=== PATIENT | male | born 1970 | race African-American/Black ===

== ENCOUNTER 2019-10-20 11:20 | Inpatient (IN) ==
[2019-10-20] MEDS ORDERED: niCARdipine 25 MG/10 ML VIAL IV ONE (11:55)
[2019-10-20] MEDS: niCARdipine INJ 25 MG in SODIUM CHLORIDE 0.9% 240 ML IV PRN ×4 (12:39→23:45)
[2019-10-20] MEDS ORDERED: ONDANSETRON 4 MG/2 ML VIAL IV PRN (12:39)
[2019-10-20] MEDS: amLODIPine 10 MG TABLET PO SCH (15:28)
[2019-10-20] MEDS: hydrALAZINE 20 MG/1 ML VIAL IV PRN ×2 (15:28→21:16)
[2019-10-20] MEDS ORDERED: ceFAZolin 1,000 MG in SYRINGE 1 EACH IV ONE (16:11)
[2019-10-20] MEDS ORDERED: FUROSEMIDE 40 MG/4 ML VIAL IV ONE (17:41)
[2019-10-20] MEDS: carvediloL 25 MG TABLET PO SCH (21:16)
[2019-10-20] MEDS: levETIRAcetam 500 MG TABLET PO SCH (21:16)
[2019-10-21] MEDS: niCARdipine INJ 25 MG in SODIUM CHLORIDE 0.9% 240 ML IV PRN ×2 (04:36→07:59)
[2019-10-21] MEDS: hydrALAZINE 20 MG/1 ML VIAL IV PRN ×2 (04:39→08:37)
[2019-10-21 05:09] LABS: Basophils % 0.5 % (0.0-0.8); Eosinophils # 0.3 10*3/uL (0.0-0.87); Eosinophils % 3.9 % (0.00-10.9); Hematocrit 28.8 VOL% (42.0-52.0); Hemoglobin 8.7 GM/DL (14.0-18.0); Immature Granulocytes % 0.3 %; Immature Granulocytes Absolute 0.02 #; Lymphocytes # 1.3 10*3/uL (1.4-4.0); Mean Corpuscular HGB Conc 30.2 GM/DL (32-36); Mean Corpuscular Volume 94.1 FL (87-102); Mean Platelet Volume 12.7 FL (9.6-12.0); Neutrophils % 72.3 % (38.7-73.9); Platelet Count 159 T/CUMM (130-400); Red Blood Count 3.06 MC/CUMM (3.8-5.5); Red Cell Distribution Width 13.2 % (9.3-17.3); White Blood Count 7.7 T/CUMM (4-12)
[2019-10-21 05:16] LABS: INR 1.1; PT Patient Result 11.8 SECS (9.8-11.9)
[2019-10-21 05:21] LABS: Calcium 7.2 MG/DL (8.5-10.1)
[2019-10-21] MEDS ORDERED: ceFAZolin 1,000 MG in SYRINGE 1 EACH IV ONE (06:00)
[2019-10-21] MEDS: carvediloL 25 MG TABLET PO SCH (07:32)
[2019-10-21] MEDS ORDERED: MAGNESIUM SULF RIDER 2 GM in PREMIX 1 EACH IV ONE (07:55)
[2019-10-21] MEDS: levETIRAcetam 500 MG TABLET PO SCH (08:00)
[2019-10-21] MEDS: amLODIPine 10 MG TABLET PO SCH (08:00)
[2019-10-21] MEDS ORDERED: LIDOCAINE 1%/EPI INJ 20 ML VIAL ONE (08:10)
[2019-10-21] MEDS ORDERED: BUPIVACAINE 0.5% 50 ML VIAL ONE (08:10)
[2019-10-21] MEDS ORDERED: PANTOPRAZOLE 40 MG TABLET PO SCH (09:00)
[2019-10-21] MEDS ORDERED: POTASSIUM CHLORIDE INJ 10 MEQ, MAGNESIUM SULF INJ 2 GM in SODIUM CHLORIDE 0.45% 1,000 ML IV SCH (09:00)
[2019-10-21] MEDS ORDERED: TISSUE ADHESIVE 1 EACH APPLICATOR TOP ONE (09:45)
[2019-10-21] MEDS ORDERED: SEVOFLURANE 1 UNIT/15 MINUTE INH ONE (10:27)
[2019-10-21] MEDS ORDERED: MIDAZOLAM 2 MG/2 ML VIAL ONE (10:27)
[2019-10-21] MEDS ORDERED: LIDOCAINE 2% 5 ML VIAL ONE (10:27)
[2019-10-21] MEDS ORDERED: propofoL 200 MG/20 ML VIAL IV ONE (10:27)
[2019-10-21] MEDS ORDERED: fentaNYL 100 MCG/2 ML VIAL ONE (10:27)
[2019-10-21] MEDS ORDERED: ETOMIDATE 40 MG/20 ML VIAL IV ONE (10:28)
[2019-10-21] MEDS ORDERED: GLYCOPYRROLATE 0.4 MG/2 ML VIAL ONE (10:28)
[2019-10-21] MEDS ORDERED: ePHEDrine 50 MG/ML VIAL ONE (10:28)
[2019-10-21] MEDS ORDERED: ROCURONIUM 100 MG/10 ML VIAL IV ONE (10:28)
[2019-10-21] MEDS ORDERED: PHENYLEPHRINE 1 MG/10 ML SYRINGE IV ONE (10:28)
[2019-10-21] MEDS ORDERED: NEOSTIGMINE 10 MG/10 ML VIAL ONE (10:28)
[2019-10-21 10:53] VITALS: BP 113/79
[2019-10-21] MEDS ORDERED: SODIUM CHLORIDE 0.65% NASAL SPRAY 45 ML BOTTLE BOTH NARES PRN (15:37)
== END 2019-10-21 16:55 | disposition home or self-care (01) | DRG 674 ==
LOC: EDBD → EDUNIT# → N.ED 11:20 → N.EDINP 12:39 → N.ICU 13:14
PROVIDERS: ADMIT Family Medicine; ATTEND Family Medicine

== ENCOUNTER 2019-11-14 09:23 | Inpatient (IN) ==
[2019-11-14] MEDS ORDERED: hydrALAZINE 20 MG/1 ML VIAL IV STA ×2 (10:04→12:02)
[2019-11-14 10:22] LABS: Basophils % 0.4 % (0.0-0.8); Eosinophils # 0.3 10*3/uL (0.0-0.87); Eosinophils % 3.3 % (0.00-10.9); Hematocrit 28.6 VOL% (42.0-52.0); Hemoglobin 8.7 GM/DL (14.0-18.0); Immature Granulocytes % 0.9 %; Immature Granulocytes Absolute 0.07 #; Lymphocytes # 1.5 10*3/uL (1.4-4.0); Lymphocytes % 19.4 % (21.2-54.2); Mean Corpuscular HGB Conc 30.4 GM/DL (32-36); Mean Platelet Volume 11.3 FL (9.6-12.0); Monocytes % 7.9 % (1.7-12.7); NRBC # 0.06 10*3/uL; Neutrophils % 68.1 % (38.7-73.9); Platelet Count 185 T/CUMM (130-400); Red Blood Count 3.01 MC/CUMM (3.8-5.5); Red Cell Distribution Width 13.2 % (9.3-17.3); White Blood Count 7.6 T/CUMM (4-12)
[2019-11-14 10:38] LABS: Albumin 3.1 G/DL (3.4-5.0); Bilirubin,Total 0.4 MG/DL (0.2-1.0); Calcium 7.5 MG/DL (8.5-10.1); Osmolality,Calculated 287.4 MOS/KG (273-304)
[2019-11-14 10:42] LABS: Eosinophils 4 % (0-10); Lymphocytes 10 % (20-55); Nucleated Red Blood Cells 2 (0-5); Segmented Neutrophils 78 % (50-85); Total Cells Counted 100
[2019-11-14 10:43] LABS: Platelet Estimate Adequate
[2019-11-14] MEDS ORDERED: LABETALOL 100 MG/20 ML VIAL IV STA (11:55)
[2019-11-14] MEDS ORDERED: ceFAZolin 2,000 MG in PREMIX 1 EACH IV ONE (12:53)
[2019-11-14] MEDS ORDERED: cloNIDine 0.1 MG TABLET PO STA (13:37)
[2019-11-14] MEDS ORDERED: DEXTROSE 50% 25 GM/50 ML VIAL IV PRN (14:21)
[2019-11-14] MEDS ORDERED: GLUCAGON 1 MG VIAL IM PRN (14:21)
[2019-11-14] MEDS ORDERED: ONDANSETRON 4 MG/2 ML VIAL IV PRN (14:21)
[2019-11-14] MEDS ORDERED: LACTULOSE 20 GM/30 ML UDCUP PO PRN (14:21)
[2019-11-14] MEDS ORDERED: ACETAMINOPHEN 325 MG TABLET PO PRN (14:21)
[2019-11-14] MEDS ORDERED: DOCUSATE SODIUM 100 MG CAPSULE PO PRN (14:21)
[2019-11-14] MEDS ORDERED: niCARdipine 25 MG/10 ML VIAL IV ONE (16:01)
[2019-11-14] MEDS: niCARdipine INJ 25 MG in SODIUM CHLORIDE 0.9% 240 ML IV PRN (16:10)
[2019-11-15 05:44] LABS: Basophils % 0.4 % (0.0-0.8); Eosinophils # 0.2 10*3/uL (0.0-0.87); Hematocrit 29.5 VOL% (42.0-52.0); Hemoglobin 9.3 GM/DL (14.0-18.0); Immature Granulocytes Absolute 0.07 #; Lymphocytes # 1.3 10*3/uL (1.4-4.0); Lymphocytes % 17.5 % (21.2-54.2); Mean Corpuscular HGB Conc 31.5 GM/DL (32-36); Mean Corpuscular Volume 92.8 FL (87-102); Mean Platelet Volume 11.2 FL (9.6-12.0); NRBC # 0.05 10*3/uL; Neutrophils % 71.1 % (38.7-73.9); Platelet Count 190 T/CUMM (130-400); Red Blood Count 3.18 MC/CUMM (3.8-5.5); Red Cell Distribution Width 13.1 % (9.3-17.3); White Blood Count 7.3 T/CUMM (4-12)
[2019-11-15 06:33] LABS: Bilirubin,Total 0.4 MG/DL (0.2-1.0); Calcium 7.8 MG/DL (8.5-10.1); Osmolality,Calculated 288.3 MOS/KG (273-304); Risk Ratio 3.95; Thyroid Stimulating Hormone 0.646 uIU/ml (0.358-3.74); Total Protein 7.7 G/DL (6.4-8.3); VLDL CHOLESTEROL 14.8 MG/DL
[2019-11-15] MEDS ORDERED: MAGNESIUM SULF RIDER 2 GM in PREMIX 1 EACH IV PRN (07:48)
[2019-11-15] MEDS ORDERED: MAGNESIUM SULF RIDER 4 GM in PREMIX 1 EACH IV PRN (07:48)
[2019-11-15] MEDS ORDERED: levETIRAcetam 500 MG TABLET ONE (09:09)
[2019-11-15] MEDS: levETIRAcetam 500 MG TABLET PO SCH ×2 (09:15→21:25)
[2019-11-15] MEDS: SEVELAMER CARBONATE 800 MG TABLET PO SCH ×3 (09:26→17:10)
[2019-11-15] MEDS: carvediloL 25 MG TABLET PO SCH ×3 (09:27→21:25)
[2019-11-15] MEDS: PANTOPRAZOLE 40 MG TABLET PO SCH (09:27)
[2019-11-15] MEDS: niCARdipine INJ 25 MG in SODIUM CHLORIDE 0.9% 240 ML IV PRN ×2 (11:45→11:46)
[2019-11-15] MEDS ORDERED: amLODIPine 10 MG TABLET PO SCH (13:47)
[2019-11-15] MEDS: amLODIPine 10 MG TABLET PO SCH (14:37)
[2019-11-15] MEDS: hydrALAZINE 20 MG/1 ML VIAL IV PRN (17:50)
[2019-11-16] MEDS: hydrALAZINE 20 MG/1 ML VIAL IV PRN ×2 (01:45→08:08)
[2019-11-16 04:34] LABS: Basophils % 0.4 % (0.0-0.8); Eosinophils # 0.2 10*3/uL (0.0-0.87); Hematocrit 28.6 VOL% (42.0-52.0); Hemoglobin 8.9 GM/DL (14.0-18.0); Immature Granulocytes % 0.8 %; Immature Granulocytes Absolute 0.06 #; Lymphocytes # 1.5 10*3/uL (1.4-4.0); Lymphocytes % 19.2 % (21.2-54.2); Mean Corpuscular HGB Conc 31.1 GM/DL (32-36); Mean Corpuscular Volume 91.7 FL (87-102); Mean Platelet Volume 11.7 FL (9.6-12.0); Monocytes % 7.2 % (1.7-12.7); NRBC # 0.03 10*3/uL; Neutrophils % 69.4 % (38.7-73.9); Platelet Count 193 T/CUMM (130-400); Red Blood Count 3.12 MC/CUMM (3.8-5.5); Red Cell Distribution Width 13.6 % (9.3-17.3); White Blood Count 7.6 T/CUMM (4-12)
[2019-11-16 05:04] LABS: Albumin 2.7 G/DL (3.4-5.0); Bilirubin,Total 0.6 MG/DL (0.2-1.0); Calcium 7.5 MG/DL (8.5-10.1); Osmolality,Calculated 292.1 MOS/KG (273-304); Total Protein 6.9 G/DL (6.4-8.3)
[2019-11-16] MEDS: SEVELAMER CARBONATE 800 MG TABLET PO SCH ×3 (07:51→18:11)
[2019-11-16] MEDS: amLODIPine 10 MG TABLET PO SCH (08:08)
[2019-11-16] MEDS: carvediloL 25 MG TABLET PO SCH ×2 (08:08→21:45)
[2019-11-16] MEDS: levETIRAcetam 500 MG TABLET PO SCH ×2 (09:36→21:45)
[2019-11-16] MEDS: PANTOPRAZOLE 40 MG TABLET PO SCH (09:40)
[2019-11-16] MEDS ORDERED: TISSUE ADHESIVE 1 EACH APPLICATOR TOP ONE (10:20)
[2019-11-16] MEDS ORDERED: LIDOCAINE 1%/EPI INJ 20 ML VIAL ONE (10:20)
[2019-11-16] MEDS ORDERED: HEPARIN 5,000 UNIT/1 ML VIAL ONE (10:20)
[2019-11-16] MEDS ORDERED: BUPIVACAINE 0.25% /EPI 10 ML VIAL ONE (10:20)
[2019-11-16] MEDS ORDERED: ceFAZolin 1,000 MG VIAL ONE (11:35)
[2019-11-16] MEDS ORDERED: SEVOFLURANE 1 UNIT/15 MINUTE INH ONE (13:09)
[2019-11-16] MEDS ORDERED: propofoL 200 MG/20 ML VIAL IV ONE (13:09)
[2019-11-16] MEDS ORDERED: PHENYLEPHRINE DRIP 20 MG/250 ML PREMIX IV ONE (13:09)
[2019-11-16] MEDS ORDERED: LIDOCAINE 2% 5 ML VIAL ONE (13:09)
[2019-11-16] MEDS ORDERED: ROCURONIUM 100 MG/10 ML VIAL IV ONE (13:10)
[2019-11-16] MEDS ORDERED: SUCCINYLCHOLINE 200 MG/10 ML VIAL ONE (13:10)
[2019-11-16] MEDS ORDERED: ONDANSETRON 4 MG/2 ML VIAL ONE (13:10)
[2019-11-16] MEDS ORDERED: GLYCOPYRROLATE 0.4 MG/2 ML VIAL ONE (13:10)
[2019-11-16] MEDS ORDERED: fentaNYL 100 MCG/2 ML VIAL ONE (13:10)
[2019-11-16] MEDS ORDERED: ETOMIDATE 40 MG/20 ML VIAL IV ONE (13:10)
[2019-11-16] MEDS ORDERED: PHENYLEPHRINE 1 MG/10 ML SYRINGE IV ONE (13:10)
[2019-11-16] MEDS ORDERED: MIDAZOLAM 2 MG/2 ML VIAL ONE (13:10)
[2019-11-16] MEDS ORDERED: NEOSTIGMINE 10 MG/10 ML VIAL ONE (13:11)
[2019-11-16] MEDS ORDERED: amLODIPine 10 MG TABLET PO SCH (13:11)
[2019-11-16] MEDS ORDERED: ONDANSETRON 4 MG/2 ML VIAL IV PRN (13:18)
[2019-11-16] MEDS: HYDROmorphone 2 MG/1 ML VIAL IV PRN ×2 (13:20→13:25)
[2019-11-16 18:02] LABS: Hepatitis B Core IgM Quant 0.13 Index; Hepatitis B Surface Ag Quant 0.33 Index; Hepatitis B Surface Ag Result Negative (Negative); Hepatitis C Virus Ab Quant 0.04 Index; Hepatitis C Virus Ab Result Negative (Negative)
[2019-11-16] MEDS ORDERED: HEPARIN 10,000 UNIT/10 ML VIAL IV SCH (20:30)
[2019-11-17 04:24] LABS: Basophils % 0.2 % (0.0-0.8); Eosinophils # 0.2 10*3/uL (0.0-0.87); Eosinophils % 1.8 % (0.00-10.9); Hematocrit 30.6 VOL% (42.0-52.0); Hemoglobin 9.2 GM/DL (14.0-18.0); Immature Granulocytes % 0.6 %; Immature Granulocytes Absolute 0.06 #; Lymphocytes % 9.3 % (21.2-54.2); Mean Corpuscular HGB Conc 30.1 GM/DL (32-36); Mean Corpuscular Volume 96.2 FL (87-102); Mean Platelet Volume 10.5 FL (9.6-12.0); Monocytes % 5.1 % (1.7-12.7); NRBC # 0.03 10*3/uL; Platelet Count 171 T/CUMM (130-400); Red Blood Count 3.18 MC/CUMM (3.8-5.5); Red Cell Distribution Width 13.9 % (9.3-17.3); White Blood Count 10.3 T/CUMM (4-12)
[2019-11-17 05:08] LABS: Alanine Aminotransferase 9 U/L (16-61); Albumin 2.8 G/DL (3.4-5.0); Alkaline Phosphatase 110 U/L (45-117); Aspartate Amino Transferase 9 U/L (0-37); Bilirubin,Total < 0.39 MG/DL (0.2-1.0); Blood Urea Nitrogen 31 MG/DL (7-18); Calcium 7.3 MG/DL (8.5-10.1); Estimated Glom Filtration Rate 13 ML/MIN; Glucose 98 MG/DL (74-106); Osmolality,Calculated 283.5 MOS/KG (273-304); Total Protein 7.3 G/DL (6.4-8.3)
[2019-11-17 07:50] VITALS: BP 152/88
[2019-11-17] MEDS ORDERED: TAMSULOSIN 0.4 MG CAPSULE PO SCH (09:30)
[2019-11-17] MEDS: amLODIPine 10 MG TABLET PO SCH (09:48)
[2019-11-17] MEDS: PANTOPRAZOLE 40 MG TABLET PO SCH (09:49)
[2019-11-17] MEDS: hydrALAZINE 20 MG/1 ML VIAL IV PRN (09:49)
[2019-11-17] MEDS: levETIRAcetam 500 MG TABLET PO SCH (09:49)
[2019-11-17] MEDS: carvediloL 25 MG TABLET PO SCH (09:49)
[2019-11-17] MEDS: SEVELAMER CARBONATE 800 MG TABLET PO SCH (09:49)
== END 2019-11-17 11:42 | disposition home or self-care (01) | DRG 987 ==
LOC: N.ED 09:23 → N.EDINP 16:02 → N.ICU 11-15 12:46 → N.TELEN 11-17 05:57
PROVIDERS: ADMIT Family Medicine; ATTEND Family Medicine

== ENCOUNTER 2019-11-19 10:19 | Inpatient (IN) ==
[2019-11-19] MEDS ORDERED: NALOXONE 0.4 MG/ML VIAL ONE (11:11)
[2019-11-19] MEDS ORDERED: NALOXONE 0.4 MG/ML VIAL IV STA ×2 (11:11→11:36)
[2019-11-19 11:14] LABS: ABG Base Excess -5.7 MMOL/L (-2.5-2.5); ABG HCO3 19.7 MMOL/L (20-26); ABG Oxygen Saturation 94.4 % (95-100); ABG PCO2 52.6 MM HG (35-48); ABG PO2 80.1 MM HG (80-95); ABG TCO2 20.8 MMOL/L (23-27); Allen Test Positive; Pt O2 Delivery Device Room Air
[2019-11-19 11:23] LABS: Basophils % 0.4 % (0.0-0.8); Eosinophils # 0.2 10*3/uL (0.0-0.87); Eosinophils % 1.9 % (0.00-10.9); Hematocrit 28.5 VOL% (42.0-52.0); Hemoglobin 8.5 GM/DL (14.0-18.0); Immature Granulocytes % 0.6 %; Immature Granulocytes Absolute 0.07 #; Lymphocytes # 1.1 10*3/uL (1.4-4.0); Lymphocytes % 10.3 % (21.2-54.2); Mean Corpuscular HGB Conc 29.8 GM/DL (32-36); Mean Corpuscular Volume 95.3 FL (87-102); Mean Platelet Volume 10.9 FL (9.6-12.0); Monocytes % 8.7 % (1.7-12.7); NRBC # 0.03 10*3/uL; Neutrophils % 78.1 % (38.7-73.9); Platelet Count 176 T/CUMM (130-400); Red Blood Count 2.99 MC/CUMM (3.8-5.5); Red Cell Distribution Width 13.6 % (9.3-17.3); White Blood Count 10.8 T/CUMM (4-12)
[2019-11-19 11:34] LABS: INR 1.1; PT Patient Result 11.3 SECS (9.8-11.9)
[2019-11-19 11:55] LABS: Partial Thromboplastin Time 69.7 SECS (23.9-33.8)
[2019-11-19 12:01] LABS: Alanine Aminotransferase 9 U/L (16-61); Albumin 2.7 G/DL (3.4-5.0); Alkaline Phosphatase 96 U/L (45-117); Aspartate Amino Transferase 8 U/L (0-37); Blood Urea Nitrogen 48 MG/DL (7-18); Calcium 7.8 MG/DL (8.5-10.1); Estimated Glom Filtration Rate 8 ML/MIN; Glucose 98 MG/DL (74-106); Osmolality,Calculated 287.7 MOS/KG (273-304); Total Protein 7.5 G/DL (6.4-8.3)
[2019-11-19] MEDS ORDERED: VANCOMYCIN INJ 1,000 MG in SODIUM CHLORIDE 0.9% 250 ML IV STA (12:21)
[2019-11-19] MEDS ORDERED: ACETAMINOPHEN 325 MG TABLET PO PRN (12:29)
[2019-11-19] MEDS ORDERED: ONDANSETRON 4 MG/2 ML VIAL IV PRN (12:29)
[2019-11-19] MEDS ORDERED: LORazepam 2 MG/1 ML VIAL IV PRN (12:35)
[2019-11-19 13:58] LABS: ABG Base Excess -4.9 MMOL/L (-2.5-2.5); ABG HCO3 20.3 MMOL/L (20-26); ABG Oxygen Saturation 97.4 % (95-100); ABG PCO2 48.2 MM HG (35-48); ABG PH 7.267 (7.35-7.45); ABG PO2 97.9 MM HG (80-95); ABG TCO2 20.7 MMOL/L (23-27); Allen Test Positive; Pt O2 Delivery Device BIPAP
[2019-11-19] MEDS: HEPARIN 5,000 UNIT/1 ML VIAL SUBCUT SCH (14:00)
[2019-11-19] MEDS: SEVELAMER CARBONATE 800 MG TABLET PO SCH (16:49)
[2019-11-19] MEDS ORDERED: carvediloL 12.5 MG TABLET PO SCH (17:00)
[2019-11-19] MEDS ORDERED: HEPARIN 10,000 UNIT/10 ML VIAL IV SCH (17:00)
[2019-11-20] MEDS: HEPARIN 5,000 UNIT/1 ML VIAL SUBCUT SCH ×4 (00:09→21:14)
[2019-11-20] MEDS: TAMSULOSIN 0.4 MG CAPSULE PO SCH ×3 (00:10→21:14)
[2019-11-20] MEDS: carvediloL 25 MG TABLET PO SCH ×3 (00:10→18:18)
[2019-11-20] MEDS: levETIRAcetam 500 MG TABLET PO SCH ×3 (00:11→21:14)
[2019-11-20] MEDS ORDERED: MORPHINE 4 MG/1 ML VIAL IV PRN (01:43)
[2019-11-20] MEDS ORDERED: hydrALAZINE 20 MG/1 ML VIAL IV PRN (01:44)
[2019-11-20 05:12] LABS: ABG Base Excess -1.5 MMOL/L (-2.5-2.5); ABG HCO3 23.2 MMOL/L (20-26); ABG Oxygen Saturation 96.7 % (95-100); ABG PCO2 50.5 MM HG (35-48); ABG PH 7.306 (7.35-7.45); ABG PO2 87.6 MM HG (80-95); ABG TCO2 23.4 MMOL/L (23-27); Allen Test Positive; Pt O2 Delivery Device BIPAP
[2019-11-20 05:40] LABS: Basophils % 0.4 % (0.0-0.8); Eosinophils # 0.3 10*3/uL (0.0-0.87); Eosinophils % 2.8 % (0.00-10.9); Hematocrit 27.9 VOL% (42.0-52.0); Hemoglobin 8.2 GM/DL (14.0-18.0); Immature Granulocytes % 0.5 %; Immature Granulocytes Absolute 0.05 #; Lymphocytes # 0.8 10*3/uL (1.4-4.0); Lymphocytes % 7.1 % (21.2-54.2); Mean Corpuscular HGB Conc 29.4 GM/DL (32-36); Mean Corpuscular Volume 95.5 FL (87-102); Mean Platelet Volume 11.4 FL (9.6-12.0); Monocytes % 7.1 % (1.7-12.7); Neutrophils % 82.1 % (38.7-73.9); Platelet Count 187 T/CUMM (130-400); Red Blood Count 2.92 MC/CUMM (3.8-5.5); Red Cell Distribution Width 13.5 % (9.3-17.3)
[2019-11-20 05:59] LABS: Calcium 8.3 MG/DL (8.5-10.1); Osmolality,Calculated 277.1 MOS/KG (273-304)
[2019-11-20] MEDS: PANTOPRAZOLE 40 MG TABLET PO SCH (09:10)
[2019-11-20] MEDS: SEVELAMER CARBONATE 800 MG TABLET PO SCH ×3 (09:10→18:18)
[2019-11-20] MEDS: amLODIPine 5 MG TABLET PO SCH (10:50)
[2019-11-20] MEDS ORDERED: LIDOCAINE 2% TOP JELLY 20 ML VIAL INTRAURETH ONE ×2 (10:57→10:58)
[2019-11-20] MEDS ORDERED: cefTRIAXone 1,000 MG in SYRINGE 1 EACH IV ONE (11:30)
[2019-11-20 12:09] LABS: Apearance,Urine CLOUDY (Clear); Bilirubin,Urine Negative (Negative); Blood, Urine Large mg/dL (Negative); Glucose,Urine (UA) Negative (Negative); Ketones,Urine 5 mg/dL (Negative); Mucus,Urine Occasional /LPF (Occasional); Nitrite,Urine Negative (Negative); Protein,Urine 100 MG/DL; RBC,Urine 725 /HPF (0-4); Squamous Epithelial Cell,Urine Occasional /HPF (0-10); Urine Color Yellow (Yellow); Urine Specific Gravity 1.012 (1.001-1.035); Urine Urobilinogen < 2.0 EU/DL (0.2-1.0); WBC,Urine 46 /HPF (0-6)
[2019-11-20 12:36] LABS: Barbiturates Screen,Urine Negative (Negative); Benzodiazepines Screen,Urine Positive (Negative); Cannabinoid Screen,Urine Negative (Negative); Opiate Screen,Urine Positive (Negative); Phencyclidine Screen,Urine Negative (Negative)
[2019-11-20] MEDS ORDERED: LIDOCAINE 2% TOP JELLY 5 ML TUBE TOP PRN (13:07)
[2019-11-20] MEDS ORDERED: LIDOCAINE 2% TOP JELLY 20 ML VIAL INTRAURETH PRN (14:24)
[2019-11-21 04:05] LABS: Basophils % 0.2 % (0.0-0.8); Eosinophils # 0.3 10*3/uL (0.0-0.87); Eosinophils % 3.7 % (0.00-10.9); Hematocrit 25.4 VOL% (42.0-52.0); Hemoglobin 7.8 GM/DL (14.0-18.0); Immature Granulocytes % 0.6 %; Immature Granulocytes Absolute 0.05 #; Lymphocytes # 1.1 10*3/uL (1.4-4.0); Lymphocytes % 11.9 % (21.2-54.2); Mean Corpuscular HGB Conc 30.7 GM/DL (32-36); Mean Corpuscular Volume 92.7 FL (87-102); Mean Platelet Volume 11.4 FL (9.6-12.0); Neutrophils % 74.6 % (38.7-73.9); Platelet Count 192 T/CUMM (130-400); Red Blood Count 2.74 MC/CUMM (3.8-5.5); Red Cell Distribution Width 13.2 % (9.3-17.3); White Blood Count 8.8 T/CUMM (4-12)
[2019-11-21 04:16] LABS: Calcium 7.6 MG/DL (8.5-10.1); Osmolality,Calculated 286.7 MOS/KG (273-304)
[2019-11-21] MEDS: HEPARIN 5,000 UNIT/1 ML VIAL SUBCUT SCH ×3 (05:09→21:02)
[2019-11-21] MEDS: amLODIPine 5 MG TABLET PO SCH (08:22)
[2019-11-21] MEDS: levETIRAcetam 500 MG TABLET PO SCH ×2 (08:22→20:49)
[2019-11-21] MEDS: carvediloL 25 MG TABLET PO SCH ×2 (08:22→17:01)
[2019-11-21] MEDS: PANTOPRAZOLE 40 MG TABLET PO SCH (08:22)
[2019-11-21] MEDS: TAMSULOSIN 0.4 MG CAPSULE PO SCH ×2 (08:22→20:49)
[2019-11-21] MEDS: SEVELAMER CARBONATE 800 MG TABLET PO SCH ×3 (08:22→17:01)
[2019-11-22 03:41] LABS: ABG Base Excess 0.3 MMOL/L (-2.5-2.5); ABG HCO3 25.4 MMOL/L (20-26); ABG PCO2 43.8 MM HG (35-48); ABG PH 7.382 (7.35-7.45); ABG PO2 97.5 MM HG (80-95); ABG TCO2 26.8 MMOL/L (23-27); Allen Test Positive
[2019-11-22 04:41] LABS: Basophils % 0.4 % (0.0-0.8); Eosinophils # 0.3 10*3/uL (0.0-0.87); Eosinophils % 4.7 % (0.00-10.9); Hematocrit 25.4 VOL% (42.0-52.0); Hemoglobin 7.8 GM/DL (14.0-18.0); Immature Granulocytes % 0.7 %; Immature Granulocytes Absolute 0.05 #; Lymphocytes # 1.4 10*3/uL (1.4-4.0); Lymphocytes % 20.3 % (21.2-54.2); Mean Corpuscular HGB Conc 30.7 GM/DL (32-36); Mean Corpuscular Volume 93.7 FL (87-102); Mean Platelet Volume 10.7 FL (9.6-12.0); Monocytes % 8.3 % (1.7-12.7); Neutrophils % 65.6 % (38.7-73.9); Platelet Count 179 T/CUMM (130-400); Red Blood Count 2.71 MC/CUMM (3.8-5.5); Red Cell Distribution Width 13.3 % (9.3-17.3)
[2019-11-22 05:29] LABS: Alanine Aminotransferase < 6 U/L (16-61); Albumin 2.3 G/DL (3.4-5.0); Alkaline Phosphatase 71 U/L (45-117); Aspartate Amino Transferase 8 U/L (0-37); Blood Urea Nitrogen 54 MG/DL (7-18); Calcium 7.9 MG/DL (8.5-10.1); Estimated Glom Filtration Rate 9 ML/MIN; Glucose 93 MG/DL (74-106); Osmolality,Calculated 287.8 MOS/KG (273-304)
[2019-11-22] MEDS ORDERED: diphenhydrAMINE CAP 25 MG CAPSULE PO PRN (05:37)
[2019-11-22] MEDS ORDERED: diphenhydrAMINE CAP 25 MG CAPSULE ONE (05:40)
[2019-11-22] MEDS: HEPARIN 5,000 UNIT/1 ML VIAL SUBCUT SCH ×3 (05:48→22:44)
[2019-11-22] MEDS: levETIRAcetam 500 MG TABLET PO SCH ×2 (09:27→20:50)
[2019-11-22] MEDS: TAMSULOSIN 0.4 MG CAPSULE PO SCH ×2 (09:27→20:50)
[2019-11-22] MEDS: carvediloL 25 MG TABLET PO SCH ×2 (09:27→17:58)
[2019-11-22] MEDS: amLODIPine 5 MG TABLET PO SCH (09:27)
[2019-11-22] MEDS: SEVELAMER CARBONATE 800 MG TABLET PO SCH ×3 (09:27→17:58)
[2019-11-22] MEDS: CETIRIZINE 10 MG TABLET PO SCH (11:41)
[2019-11-22] MEDS: BISACODYL 5 MG TABLET PO PRN (11:41)
[2019-11-23 06:17] LABS: Basophils % 0.4 % (0.0-0.8); Eosinophils # 0.3 10*3/uL (0.0-0.87); Eosinophils % 4.5 % (0.00-10.9); Hemoglobin 7.5 GM/DL (14.0-18.0); Immature Granulocytes Absolute 0.07 #; Lymphocytes # 1.5 10*3/uL (1.4-4.0); Lymphocytes % 20.9 % (21.2-54.2); Mean Corpuscular HGB Conc 31.3 GM/DL (32-36); Mean Corpuscular Volume 91.3 FL (87-102); Mean Platelet Volume 11.5 FL (9.6-12.0); Monocytes % 9.2 % (1.7-12.7); Platelet Count 195 T/CUMM (130-400); Red Blood Count 2.63 MC/CUMM (3.8-5.5); Red Cell Distribution Width 13.3 % (9.3-17.3); White Blood Count 7.1 T/CUMM (4-12)
[2019-11-23 06:48] LABS: Alanine Aminotransferase < 9 U/L (16-61); Albumin 2.4 G/DL (3.4-5.0); Alkaline Phosphatase 70 U/L (45-117); Aspartate Amino Transferase 12 U/L (0-37); Blood Urea Nitrogen 45 MG/DL (7-18); Calcium 8.2 MG/DL (8.5-10.1); Estimated Glom Filtration Rate 12 ML/MIN; Glucose 87 MG/DL (74-106); Osmolality,Calculated 280.1 MOS/KG (273-304); Total Protein 7.3 G/DL (6.4-8.3)
[2019-11-23] MEDS: HEPARIN 5,000 UNIT/1 ML VIAL SUBCUT SCH ×3 (06:57→21:36)
[2019-11-23 06:58] LABS: Calcium 8.2 MG/DL (8.5-10.1); Osmolality,Calculated 280.1 MOS/KG (273-304)
[2019-11-23] MEDS: levETIRAcetam 500 MG TABLET PO SCH ×2 (09:00→21:35)
[2019-11-23] MEDS: carvediloL 25 MG TABLET PO SCH ×2 (09:00→17:31)
[2019-11-23] MEDS: CETIRIZINE 10 MG TABLET PO SCH (09:00)
[2019-11-23] MEDS: SEVELAMER CARBONATE 800 MG TABLET PO SCH ×3 (09:00→17:31)
[2019-11-23] MEDS: amLODIPine 5 MG TABLET PO SCH (09:00)
[2019-11-23] MEDS: TAMSULOSIN 0.4 MG CAPSULE PO SCH ×2 (09:00→21:35)
[2019-11-23] MEDS ORDERED: SODIUM CHLORIDE 0.9% 1,000 ML IV PRN (10:41)
[2019-11-23] MEDS ORDERED: SENNA 8.6 MG TABLET PO PRN (13:32)
[2019-11-23] MEDS ORDERED: MAGNESIUM CHLORIDE 64 MG TABLET PO ONE (14:00)
[2019-11-23] MEDS: POLYETHYLENE GLYCOL POWDER 17 GM PACK PO SCH ×2 (15:49→21:35)
[2019-11-23] MEDS: DOCUSATE SODIUM 100 MG CAPSULE PO SCH ×2 (15:49→21:35)
[2019-11-24] MEDS: HEPARIN 5,000 UNIT/1 ML VIAL SUBCUT SCH ×3 (06:00→21:16)
[2019-11-24 06:19] LABS: Albumin 2.4 G/DL (3.4-5.0); Bilirubin,Total 0.4 MG/DL (0.2-1.0); Calcium 8.1 MG/DL (8.5-10.1); Total Protein 7.2 G/DL (6.4-8.3)
[2019-11-24] MEDS: SEVELAMER CARBONATE 800 MG TABLET PO SCH ×3 (08:26→17:57)
[2019-11-24] MEDS: carvediloL 25 MG TABLET PO SCH ×2 (08:26→17:57)
[2019-11-24] MEDS: levETIRAcetam 500 MG TABLET PO SCH ×2 (08:26→21:15)
[2019-11-24] MEDS: TAMSULOSIN 0.4 MG CAPSULE PO SCH ×2 (08:26→21:16)
[2019-11-24] MEDS: CETIRIZINE 10 MG TABLET PO SCH (08:26)
[2019-11-24] MEDS: DOCUSATE SODIUM 100 MG CAPSULE PO SCH ×2 (08:26→21:15)
[2019-11-24] MEDS: amLODIPine 5 MG TABLET PO SCH (08:26)
[2019-11-24] MEDS: POLYETHYLENE GLYCOL POWDER 17 GM PACK PO SCH ×2 (08:26→21:16)
[2019-11-25] MEDS: HEPARIN 5,000 UNIT/1 ML VIAL SUBCUT SCH ×3 (06:14→22:02)
[2019-11-25 06:26] LABS: Albumin 2.6 G/DL (3.4-5.0); Bilirubin,Total 0.5 MG/DL (0.2-1.0); Calcium 8.9 MG/DL (8.5-10.1); Osmolality,Calculated 281.1 MOS/KG (273-304); Total Protein 7.5 G/DL (6.4-8.3)
[2019-11-25] MEDS: POLYETHYLENE GLYCOL POWDER 17 GM PACK PO SCH ×2 (08:38→20:33)
[2019-11-25] MEDS: DOCUSATE SODIUM 100 MG CAPSULE PO SCH ×2 (08:39→20:33)
[2019-11-25] MEDS: SEVELAMER CARBONATE 800 MG TABLET PO SCH ×3 (08:39→16:57)
[2019-11-25] MEDS: carvediloL 25 MG TABLET PO SCH ×2 (08:39→16:57)
[2019-11-25] MEDS: BISACODYL 5 MG TABLET PO PRN (08:39)
[2019-11-25] MEDS: CETIRIZINE 10 MG TABLET PO SCH (08:39)
[2019-11-25] MEDS: TAMSULOSIN 0.4 MG CAPSULE PO SCH ×2 (08:39→20:34)
[2019-11-25] MEDS: amLODIPine 5 MG TABLET PO SCH (08:39)
[2019-11-25] MEDS: levETIRAcetam 500 MG TABLET PO SCH ×2 (08:40→20:33)
[2019-11-25] MEDS: LACTULOSE 20 GM/30 ML UDCUP PO SCH ×2 (12:34→19:03)
[2019-11-25] MEDS ORDERED: SODIUM PHOSPHATE ENEMA 133 ML BOTTLE RECTAL PRN (15:41)
[2019-11-25] MEDS: METOCLOPRAMIDE 10 MG/2 ML VIAL IV SCH (17:29)
[2019-11-25] MEDS ORDERED: METOCLOPRAMIDE 10 MG/2 ML VIAL IM SCH (18:00)
[2019-11-25] MEDS: SENNA 8.6 MG TABLET PO SCH (20:33)
[2019-11-26] MEDS: LACTULOSE 20 GM/30 ML UDCUP PO SCH ×4 (00:31→19:47)
[2019-11-26] MEDS: METOCLOPRAMIDE 10 MG/2 ML VIAL IV SCH ×4 (01:50→17:21)
[2019-11-26] MEDS: HEPARIN 5,000 UNIT/1 ML VIAL SUBCUT SCH ×3 (05:40→21:51)
[2019-11-26 06:13] LABS: Basophils % 0.5 % (0.0-0.8); Eosinophils # 0.3 10*3/uL (0.0-0.87); Hemoglobin 9.7 GM/DL (14.0-18.0); Immature Granulocytes % 0.8 %; Immature Granulocytes Absolute 0.07 #; Lymphocytes # 1.5 10*3/uL (1.4-4.0); Lymphocytes % 17.7 % (21.2-54.2); Mean Corpuscular HGB Conc 31.3 GM/DL (32-36); Mean Corpuscular Volume 90.6 FL (87-102); Mean Platelet Volume 11.6 FL (9.6-12.0); Monocytes % 8.1 % (1.7-12.7); Neutrophils % 68.9 % (38.7-73.9); Platelet Count 232 T/CUMM (130-400); Red Blood Count 3.42 MC/CUMM (3.8-5.5); Red Cell Distribution Width 13.4 % (9.3-17.3); White Blood Count 8.4 T/CUMM (4-12)
[2019-11-26 06:43] LABS: Calcium 9.5 MG/DL (8.5-10.1)
[2019-11-26] MEDS ORDERED: LINACLOTIDE 145 MCG CAPSULE PO SCH (07:30)
[2019-11-26] MEDS: carvediloL 25 MG TABLET PO SCH ×2 (11:34→17:21)
[2019-11-26] MEDS: SEVELAMER CARBONATE 800 MG TABLET PO SCH ×3 (11:36→17:21)
[2019-11-26] MEDS: DOCUSATE SODIUM 100 MG CAPSULE PO SCH ×2 (11:36→20:48)
[2019-11-26] MEDS: TAMSULOSIN 0.4 MG CAPSULE PO SCH ×2 (11:36→20:50)
[2019-11-26] MEDS: levETIRAcetam 500 MG TABLET PO SCH ×2 (11:38→20:50)
[2019-11-26] MEDS: CETIRIZINE 10 MG TABLET PO SCH (11:39)
[2019-11-26] MEDS: POLYETHYLENE GLYCOL POWDER 17 GM PACK PO SCH ×2 (11:39→20:48)
[2019-11-26] MEDS: amLODIPine 10 MG TABLET PO SCH (11:39)
[2019-11-26] MEDS: SENNA 8.6 MG TABLET PO SCH (20:48)
[2019-11-27] MEDS: LACTULOSE 20 GM/30 ML UDCUP PO SCH ×4 (00:02→18:48)
[2019-11-27 05:29] LABS: Basophils # 0.1 10*3/uL (0.0-0.2); Basophils % 0.6 % (0.0-0.8); Eosinophils # 0.4 10*3/uL (0.0-0.87); Eosinophils % 5.1 % (0.00-10.9); Hematocrit 31.6 VOL% (42.0-52.0); Hemoglobin 9.8 GM/DL (14.0-18.0); Immature Granulocytes % 0.9 %; Immature Granulocytes Absolute 0.08 #; Lymphocytes % 22.9 % (21.2-54.2); Mean Corpuscular Volume 92.9 FL (87-102); Mean Platelet Volume 11.4 FL (9.6-12.0); Monocytes % 8.8 % (1.7-12.7); Neutrophils % 61.7 % (38.7-73.9); Platelet Count 225 T/CUMM (130-400); Red Cell Distribution Width 13.5 % (9.3-17.3); White Blood Count 8.7 T/CUMM (4-12)
[2019-11-27] MEDS: HEPARIN 5,000 UNIT/1 ML VIAL SUBCUT SCH ×3 (05:46→21:22)
[2019-11-27 07:51] LABS: Calcium 9.4 MG/DL (8.5-10.1); Osmolality,Calculated 280.1 MOS/KG (273-304)
[2019-11-27] MEDS: levETIRAcetam 500 MG TABLET PO SCH ×2 (08:05→21:21)
[2019-11-27] MEDS: CETIRIZINE 10 MG TABLET PO SCH (08:06)
[2019-11-27] MEDS: TAMSULOSIN 0.4 MG CAPSULE PO SCH ×2 (08:06→21:21)
[2019-11-27] MEDS: carvediloL 25 MG TABLET PO SCH ×2 (08:06→17:49)
[2019-11-27] MEDS: amLODIPine 10 MG TABLET PO SCH (08:06)
[2019-11-27] MEDS: SEVELAMER CARBONATE 800 MG TABLET PO SCH ×3 (08:06→17:49)
[2019-11-27] MEDS: DOCUSATE SODIUM 100 MG CAPSULE PO SCH ×2 (09:41→21:27)
[2019-11-27] MEDS: POLYETHYLENE GLYCOL POWDER 17 GM PACK PO SCH ×2 (09:41→21:21)
[2019-11-27] MEDS: SENNA 8.6 MG TABLET PO SCH (21:21)
[2019-11-28] MEDS: LACTULOSE 20 GM/30 ML UDCUP PO SCH ×3 (03:12→11:58)
[2019-11-28] MEDS: HEPARIN 5,000 UNIT/1 ML VIAL SUBCUT SCH (05:54)
[2019-11-28 06:19] LABS: Basophils % 0.5 % (0.0-0.8); Eosinophils # 0.3 10*3/uL (0.0-0.87); Eosinophils % 4.2 % (0.00-10.9); Hematocrit 31.7 VOL% (42.0-52.0); Hemoglobin 9.8 GM/DL (14.0-18.0); Immature Granulocytes % 0.7 %; Immature Granulocytes Absolute 0.06 #; Lymphocytes # 1.8 10*3/uL (1.4-4.0); Lymphocytes % 21.9 % (21.2-54.2); Mean Corpuscular HGB Conc 30.9 GM/DL (32-36); Mean Corpuscular Volume 91.4 FL (87-102); Mean Platelet Volume 11.6 FL (9.6-12.0); Monocytes % 8.7 % (1.7-12.7); Platelet Count 230 T/CUMM (130-400); Red Blood Count 3.47 MC/CUMM (3.8-5.5); Red Cell Distribution Width 13.3 % (9.3-17.3); White Blood Count 8.2 T/CUMM (4-12)
[2019-11-28 06:39] LABS: Calcium 9.3 MG/DL (8.5-10.1); Osmolality,Calculated 284.2 MOS/KG (273-304)
[2019-11-28] MEDS: SEVELAMER CARBONATE 800 MG TABLET PO SCH ×2 (08:30→11:58)
[2019-11-28] MEDS: TAMSULOSIN 0.4 MG CAPSULE PO SCH (08:31)
[2019-11-28] MEDS: DOCUSATE SODIUM 100 MG CAPSULE PO SCH (08:31)
[2019-11-28] MEDS: CETIRIZINE 10 MG TABLET PO SCH (08:32)
[2019-11-28] MEDS: carvediloL 25 MG TABLET PO SCH (08:33)
[2019-11-28] MEDS: levETIRAcetam 500 MG TABLET PO SCH (08:33)
[2019-11-28] MEDS: amLODIPine 10 MG TABLET PO SCH (08:33)
[2019-11-28] MEDS: POLYETHYLENE GLYCOL POWDER 17 GM PACK PO SCH (09:09)
[2019-11-28 11:45] VITALS: BP 133/86
== END 2019-11-28 02:11 | disposition home health service (06) | DRG 189 ==
LOC: EDUNIT# → EDBD → N.ED 10:19 → N.EDINP 12:29 → SUATTDRO 12:29 → N.ICU 15:44 → N.3E 11-22 17:43
PROVIDERS: ADMIT Internal Medicine; ATTEND Family Medicine